=== PATIENT | female | born 1970 | race Hispanic/Latino ===

== ENCOUNTER 2018-02-19 18:44 | Emergency (ER) | payer OTHER ==
[~2018-02-19] VITALS: Ht 160 cm; Wt 72.1 kg
--- OUTSIDE RECORDS SUMMARY | 2018-02-19 18:46 | XMS REPORT ---
Author Author [facility] Address Unknown Phone Unavailable Care Team Providers Care Software Validation Technician Name Role Phone AMENA NOGUEIRA Unavailable Unavailable Problems This patient has no known problems. Allergies, Adverse Reactions, Alerts This patient has no known allergies or adverse reactions. Medications This patient has no known medications. Results Test Description Test Time Test Comments Text Results Atomic Results Result Comments (MANUAL DIFFERENTIAL) 2017-11-05 11:08:00 NEUTROPHILS - REL (DIFF) (BEAKER) (test zyzt=2580) 42 % LYMPHOCYTES - REL (DIFF) (BEAKER) (test gkkf=6735) 50 % MONOCYTES - REL (DIFF) (BEAKER) (test qrwe=3770) 7 % EOSINOPHILS - REL (DIFF) (BEAKER) (test zijl=6998) 1 % BASOPHILS - REL (DIFF) (BEAKER) (test xvxk=5867) 0 % NEUTROPHILS - ABS (DIFF) (BEAKER) (test ecvk=2162) 1.72 K/ L 1.80-8.00 LYMPHOCYTES - ABS (DIFF) (BEAKER) (test wlet=2504) 2.05 K/ L 1.48-4.50 MONOCYTES - ABS (DIFF) (BEAKER) (test rexl=0839) 0.29 K/ L 0.00-1.30 EOSINOPHILS - ABS (DIFF) (BEAKER) (test amjo=7995) 0.04 K/ L 0.00-0.50 BASOPHILS - ABS (DIFF) (BEAKER) (test evqc=8433) 0.00 K/ L 0.00-0.20 TOTAL COUNTED (BEAKER) (test sjzj=1748) 100 WBC MORPHOLOGY (BEAKER) (test mpzp=855) Normal PLT MORPHOLOGY (BEAKER) (test foyq=899) Normal RBC MORPHOLOGY (BEAKER) (test fanh=070) Normal Occasional reactive lymphs. CBC W/PLT COUNT & AUTO [id number] 08:45: 00* Test Item Value Reference Range Comments WHITE BLOOD CELL COUNT (BEAKER) (test lnkc=703) 4.1 K/ L 4.0-10.0 RED BLOOD CELL COUNT (BEAKER) (test cbqb=663) 3.86 M/ L 4.00-5.00 HEMOGLOBIN (BEAKER) (test plyx=119) 11.9 GM/DL 12.0-15.0 HEMATOCRIT (BEAKER) (test qzls=640) 35.1 % 36.0-45.0 MEAN CORPUSCULAR VOLUME (BEAKER) (test cnib=771) 90.9 fL 82.0-99.0 MEAN CORPUSCULAR HEMOGLOBIN (BEAKER) (test hhvp=418) 30.8 pg 27.0-33.0 MEAN CORPUSCULAR HEMOGLOBIN CONC (BEAKER) (test jzgb=310) 33.9 GM/DL 32.0- 36.0 RED CELL DISTRIBUTION WIDTH (BEAKER) (test fowo=072) 14.8 % 10.3-14.2 PLATELET COUNT (BEAKER) (test usob=356) 194 K/CU MM 150-430 MEAN PLATELET VOLUME (BEAKER) (test nmha=390) 10.2 fL 6.5-10.5 NUCLEATED RED BLOOD CELLS (BEAKER) (test vgpx=011) 0 /100 WBC 0-0 COMPREHENSIVE METABOLIC [id number] 08:11:00* Test Item Value Reference Range Comments TOTAL PROTEIN (BEAKER) (test aeuj=517) 7.3 gm/dL 6.0-8.5 ALBUMIN (BEAKER) (test elpg=8510) 3.8 g/dL 3.5-5.0 ALKALINE PHOSPHATASE (BEAKER) (test wkrl=781) 95 U/L 30-115 BILIRUBIN TOTAL (BEAKER) (test nrho=622) 0.3 mg/dL 0.1-1.2 SODIUM (BEAKER) (test krdw=813) 141 meq/L 135-148 POTASSIUM (BEAKER) (test jojw=445) 3.5 meq/L 3.6-5.5 CHLORIDE (BEAKER) (test rzuj=154) 107 meq/L 98-106 CO2 (BEAKER) (test vkdh=153) 25 meq/L 20-29 BLOOD UREA NITROGEN (BEAKER) (test jbaj=690) 10 mg/dL 10-26 CREATININE (BEAKER) (test tzru=745) 0.67 mg/dL 0.50-1.20 GLUCOSE RANDOM (BEAKER) (test mbwe=901) 100 mg/dL 70-110 CALCIUM (BEAKER) (test msho=932) 9.0 mg/dL 8.5-10.5 AST (SGOT) (BEAKER) (test drna=369) 28 U/L 5-40 ALT (SGPT) (BEAKER) (test ijkp=294) 41 U/L 5-50 EGFR (BEAKER) (test qjvc=0374) 94 mL/min/1.73 sq m ESTIMATED GFR IS NOT ACCURATE CREATININE CLEARANCE IN PREDICTING GLOMERULAR FILTRATION RATE. ESTIMATED GFR IS NOT APPLICABLE FOR DIALYSIS PATIENTS. URINALYSIS W/ REFLEX URINE [id number] 07:56:00* Test Item Value Reference Range Comments COLOR (BEAKER) (test jwux=903) Colorless CLARITY (BEAKER) (test koxc=058) Clear SPECIFIC GRAVITY UA (BEAKER) (test yafw=090) <= 1.001-1.035 PH UA (BEAKER) (test yzmr=212) 7.0 5.0-8.0 PROTEIN UA (BEAKER) (test nthd=190) Negative Negative GLUCOSE UA (BEAKER) (test uqoc=509) Negative Negative KETONES UA (BEAKER) (test tnxi=694) Negative Negative BILIRUBIN UA (BEAKER) (test qxiz=525) Negative Negative BLOOD UA (BEAKER) (test klyr=539) Negative Negative NITRITE UA (BEAKER) (test jjgl=196) Negative Negative LEUKOCYTE ESTERASE UA (BEAKER) (test pmzx=260) Negative Negative UROBILINOGEN UA (BEAKER) (test iffa=270) 0.2 mg/dL 0.2-1.0 BACTERIA (BEAKER) (test rala=946) None Seen RBC UA-MANUAL (BEAKER) (test vgyk=4855) None Seen /HPF WBC UA-MANUAL (BEAKER) (test jjvo=8508) None Seen /HPF SQUAMOUS EPITHELIAL MANUAL (BEAKER) (test ictp=4715) <5 /HPF SOURCE(BEAKER) (test mdvs=0505)
--- OUTSIDE RECORDS SUMMARY | 2018-02-19 18:46 | XMS REPORT | Clinical Summary ---
Author Author [facility] Address Unknown Phone Unavailable Care Team Providers Care Senior Architectural Designer Name Role Phone PCP Unavailable Allergies No Known Allergies Current Medications Prescription Sig. Disp. Refills Start End Date Status Date pantoprazole (PROTONIX) Take 40 mg by mouth Active 40 MG tablet daily. butalbital-acetaminophen- Take 1-2 tablets by mouth 20 tablet 0 11/05/19 Active caffeine (FIORICET) every 6 (six) hours as 18 19 50-325-40 mg per tablet needed for Headaches. losartan (COZAAR) 50 MG Take 50 mg by mouth Active tablet daily. lisinopril-hydroCHLOROthi Take 1 tablet by mouth 02/18/20 Discontin azide daily. 18 ued (PRINZIDE,ZESTORETIC) 10-12.5 mg per tablet cefixime (SUPRAX) 400 mg Take 400 mg by mouth 11/05/19 Discontin Cap daily. 18 ued azithromycin (ZITHROMAX) Take 250 mg by mouth 02/18/20 Discontin 250 MG tablet daily Take by mouth as 18 ued directed. . ondansetron (ZOFRAN-ODT) Take 1 tablet (4 mg 20 tablet 0 11/05/19 4 MG disintegrating total) by mouth every 8 18 18 tablet (eight) hours as needed for Nausea for up to 7 days. naproxen (NAPROSYN) 500 Take 1 tablet (500 mg 30 tablet 0 11/05/19 02/18/20 Discontin MG tablet total) by mouth 2 (two) 18 18 ued times daily with breakfast and dinner. Active Problems Not on file Encounters Date Type Specialty Care Team Description 11/15/2017 Hospital Charisma Alexander MD Encounter 11/15/2017 Procedure Pass 11/14/2017 Anesthesia Junior Watson MD Event 11/11/2017 Emergency Emergency Medicine 11/05/2017 Emergency Emergency Medicine Myra Nogueira Dizziness (Primary Dx);Acute non intractable tension-type headache;Anxiety about health 10/25/2017 Procedure Pass 10/22/2017 Anesthesia Junior Watson MD Event after 02/18/2017 Social History Tobacco Use Types Packs/Day Years Used Date Never Smoker Smokeless Tobacco: Never Used Alcohol Use Drinks/Week oz/Week Comments No Sex Assigned at Date Recorded Not on file Last Filed Vital Signs Vital Sign Reading Time Taken Blood Pressure 136/75 11/11/2017 8:37 PM SPECIALTY MANUFACTURING SUPERVISOR Pulse 64 11/11/2017 8:37 PM [employer]TY MANUFACTURING SUPERVISOR Temperature 36.6 C (97.8 F) 11/11/2017 8:37 PM [employer]TY MANUFACTURING SUPERVISOR Respiratory Rate 18 11/11/2017 8:37 PM SPECIALTY MANUFACTURING SUPERVISOR Oxygen Saturation 98% 11/11/2017 8:37 PM SPECIALTY MANUFACTURING SUPERVISOR Inhaled Oxygen - - Concentration Weight 71.7 kg (158 lb) 02/17/2018 2:58 PM CDT Height 160 cm (5' 2.99") 02/17/2018 2:58 PM CDT Body Mass Index 28 02/17/2018 2:58 PM CDT Plan of Treatment Date Type Specialty Care Team Description 02/21/2018 Surgery Charisma Alexander MD UPPER ENDOSCOPY,BIOPSY [id number] [facility] [address] [place] [address] [phone] 02/21/2018 Procedure Pass 02/21/2018 Hospital Charisma Alexander MD Encounter [id number] [facility] [address] [place] [address] [phone] Results * EKG-SCANNED (11/08/2017 4:00 PM) * ED ECG Interpretation (11/05/2017 8:57 PM) Narrative Myra Nogueira 11/05/20178:57 PM ECG/EKG Interpretation Date/Time: 11/05/2017 8:50 PM Performed by: MYRA NOGUEIRA Authorized by: MYRA NOGUEIRA The ECG was interpreted by ED physician. This ECG was not compared with previous ECG(s).The ECG is interpreted as sinus rhythm. Rate is normal rate. Heart rate is 62 BPM. Conduction: conduction normal. ST segments normal. T waves normal. [place] is normal. Other findings: no other findings. Clinical Impression: normal ECGECG reviewed and does not meet STEMI criteria. Patient tolerance: Patient tolerated the procedure well with no immediate complications * Manual Differential (11/05/2017 7:25 AM) Component Value Ref Range % Neutros (manual) 42 % % Lymphs (manual) 50 % % Monos (manual) 7 % % Eos (manual) 1 % % Baso (manual) 0 % # Neutros (manual) 1.72 (L) 1.80 - 8.00 K/ L # Lymphs (manual) 2.05 1.48 - 4.50 K/ L # Monos (manual) 0.29 0.00 - 1.30 K/ L # Eos (manual) 0.04 0.00 - 0.50 K/ L # Baso (manual) 0.00 0.00 - 0.20 K/ L Total Counted 100 WBC Morphology Normal Platelet Morphology Normal RBC Morphology Normal Specimen Performing Laboratory Blood - Arm, Right [place] [address] Narrative Occasional reactive lymphs. * Urinalysis w/Microscopic + Reflex to Culture (11/05/2017 7:25 AM) Component Value Ref Range Color, UA Colorless Clarity, UA Clear Specific Stendal, UA <=1.005 1.001 - 1.035 pH, UA 7.0 5.0 - 8.0 Protein, UA Negative Negative Glucose, UA Negative Negative Ketones, UA Negative Negative Bilirubin, UA Negative Negative Blood, UA Negative Negative Nitrite, UA Negative Negative Leukocytes, UA Negative Negative Urobilinogen, UA 0.2 0.2 - 1.0 mg/dL Bacteria, UA None Seen RBC, UA None Seen /HPF WBC, UA None Seen /HPF SQUAMOUS EPITHELIAL <5 /HPF Specimen Source Specimen Performing Laboratory Urine - Urine, Voided [place] [address] * CBC with platelet count + automated diff (11/05/2017 7:25 AM) Component Value Ref Range WBC 4.1 4.0 - 10.0 K/ L RBC 3.86 (L) 4.00 - 5.00 M/ L Hemoglobin 11.9 (L) 12.0 - 15.0 GM/DL Hematocrit 35.1 (L) 36.0 - 45.0 % MCV 90.9 82.0 - 99.0 fL MCH 30.8 27.0 - 33.0 pg MCHC 33.9 32.0 - 36.0 GM/DL RDW 14.8 (H) 10.3 - 14.2 % Platelets 194 150 - 430 K/CU MM MPV 10.2 6.5 - 10.5 fL nRBC 0 0 - 0 /100 WBC Specimen Performing Laboratory Blood - Arm, Right [place] [address] * CBC with platelet count + automated diff (11/05/2017 7:25 AM) Specimen Performing Laboratory Blood Narrative The following orders were created for panel order CBC with platelet count + automated diff. Procedure Abnormality Status --------- - ------ CBC with platelet count ...[[id number]]AbnormalFinal result Manual Differential[[id number]]Abnormal Final result Please view results for these tests on the individual orders. * Comprehensive metabolic panel (11/05/2017 7:25 AM) Component Value Ref Range Protein, Total 7.3 6.0 - 8.5 gm/dL Albumin 3.8 3.5 - 5.0 g/dL Alkaline Phosphatase 95 30 - 115 U/L Total Bilirubin 0.3 0.1 - 1.2 mg/dL Sodium 141 135 - 148 meq/L Potassium 3.5 (L) 3.6 - 5.5 meq/L Chloride 107 (H) 98 - 106 meq/L CO2 25 20 - 29 meq/L BUN 10 10 - 26 mg/dL Creatinine 0.67 0.50 - 1.20 mg/dL Glucose 100 70 - 110 mg/dL Calcium 9.0 8.5 - 10.5 mg/dL AST 28 5 - 40 U/L ALT 41 5 - 50 U/L EGFR 94Comment: ESTIMATED GFR IS NOT ACCURATE mL/min/1.73 sq m CREATININE CLEARANCE IN PREDICTING GLOMERULAR FILTRATION RATE. ESTIMATED GFR IS NOT APPLICABLE FOR DIALYSIS PATIENTS. Specimen Performing Laboratory Blood - Arm, Right [place] [address] * ECG 12 lead (11/05/2017 7:17 AM) Specimen Performing Laboratory GE MUSE Narrative Ventricular Rate 62 BPM Atrial Rate 62 BPM P-R Interval 142 ms QRS Duration 86 ms Q-T Interval 452 ms QTC Calculation(Bazett) 458 ms P [place] 51 degrees R [place] 31 degrees T [place] 60 degrees Normal sinus rhythm Normal ECG No previous ECGs available Confirmed by Elijah Knight ([id number]) on 11/09/2017 9:43:49 PM Procedure Note Interface, External Ris In - 11/09/2017 9:43 PM SPECIALTY MANUFACTURING SUPERVISOR Ventricular Rate 62 BPM Atrial Rate 62 BPM P-R Interval 142 ms QRS Duration 86 ms Q-T Interval 452 ms QTC Calculation(Bazett) 458 ms P [place] 51 degrees R [place] 31 degrees T [place] 60 degrees Normal sinus rhythm Normal ECG No previous ECGs available Confirmed by Elijah Knight ([id number]) on 11/09/2017 9:43:49 PM after 02/18/2017
[2018-02-19] MEDS ORDERED: LOSARTAN POTASS25 MG PO (19:55)
[2018-02-19] MEDS ORDERED: KETOROLAC TROMETHAMINE 30 MG/ML VIAL IV ONE (20:00)
[2018-02-19] MEDS ORDERED: SERTRALINE HCL50 MG PO (20:31)
== END 2018-02-19 20:38 | disposition home or self-care (01) ==
LOC: FSED 18:44
DX: G44.211 Episodic tension-type headache, intractable (principal); I10 Essential (primary) hypertension
CPT/HCPCS: 99282; J1885